=== PATIENT | male | born 1975 | race Caucasian/White ===

== ENCOUNTER 2023-12-15 13:00 | Outpatient (RCR) | payer BC, SELFPAY | END 2024-07-17 11:43 | disposition home or self-care (01) | LOC: HO.PTCHIC 13:00 | PROVIDERS: PCP Internal Medicine; Visit Provider Orthopaedic Surgery | DX: Z96.652 Presence of left artificial knee joint (principal) | CPT/HCPCS: 97110; 97112; 97116; 97161 ==

== ENCOUNTER 2025-07-11 05:57 | Outpatient (RCR) | payer BC, SELFPAY | END 2025-09-23 13:35 | disposition home or self-care (01) | LOC: HO.PTCHIC 05:57 | PROVIDERS: PCP Internal Medicine; Visit Provider Internal Medicine | DX: M54.2 Cervicalgia (principal) | CPT/HCPCS: 97110; 97140; 97161 ==